=== PATIENT | female | born 1975 | race Caucasian/White ===

== ENCOUNTER → 2020-09-21 09:14 | Outpatient (CLI) | payer BC, SELFPAY ==
--- NOTE | ~2020-09-21 | XR_ITS ---
XR sacroiliac joints min 3V DATE: 09/21/2020 12:47 INDICATION: Sacroiliac joint pain TECHNIQUE: Multiple views COMPARISON: None FINDINGS: There is a spacer device at L5-S1 interspace. The sacral iliac joints are normal, without evidence of fracture, dislocation, erosive change or anky losis. The pubic symphysis is intact. Hip joint spaces appear symmetric and well preserved. IMPRESSION: Unremarkable sacroiliac joints Postoperative change at L5-S1 Reviewed, dictated and finalized at [facility]. Reviewed, dictated and finalized at [facility].
== END ==
PROVIDERS: Visit Provider Nurse Practitioner Family
DX: M53.3 Sacrococcygeal disorders, not elsewhere classified (principal); Z98.890 Other specified postprocedural states
CPT/HCPCS: 72202